=== PATIENT | male | born 1970 ===

== ENCOUNTER 2021-03-22 15:31 | Emergency (ER) | payer SELFPAY ==
--- NOTE | 2021-03-22 16:21 | Emergency Department Report ---
Blank Doc - Documentation Documentation: Patient apparently eloped prior to my evaluation.
== END 2021-03-22 16:02 | disposition left against medical advice (07) ==
LOC: ED 15:31
DX: Z00.00 Encounter for general adult medical examination without abnormal findings (principal); Z53.21 Procedure and treatment not carried out due to patient leaving prior to being seen by health care provider
CPT/HCPCS: 99283

== ENCOUNTER 2021-11-20 18:31 | Emergency (ER) | payer SELFPAY ==
[2021-11-21] MEDS ORDERED: hydrALAZINE 100 MG TAB PO ONE (00:49)
[2021-11-21 01:18] VITALS: BP 144/95
--- NOTE | 2021-11-21 01:29 | Emergency Department Report ---
ED Medical Clearance HPI - General Chief complaint: Medical Clearance Stated complaint: HBP Time Seen by Provider: 11/21/21 00:48 Source: EMS Mode of arrival: Ambulatory - History of Present Illness Initial comments: Patient 51-year-old male with history of schizophrenia and hypertension. Patient presents [facility] for medical clearance for admission screen into [facility] for substance abuse treatment. Patient has history of hypertension hypertension is generally controlled with amlodipine 10 mg p.o. daily however patient has not taken medication today. Patient denies chest pain there is no nausea vomiting no fever chills no diaphoresis no shortness of breath. Patient is ANO x3 patient walked from her room to the ED today which is greater than 1/4 mile without symptoms. Patient appears nontoxic well-hydrated well-nourished. Patient is with no acute distress at this time. MD Complaint: medical clearance request Home medications: Previous Rx's Medication Instructions Recorded Last Taken Type amLODIPine 10 mg PO DAILY #15 tab 11/21/21 Unknown Rx Allergies/Adverse reactions: Allergies Allergy/AdvReac Type Severity Reaction Status Date / Time lisinopril Allergy Unknown Verified 03/22/21 15:42 ED Review of Systems ROS: Stated complaint: HBP Other details as noted in HPI Constitutional: denies: chills, fever Eyes: denies: eye pain, eye discharge, vision change ENT: denies: ear pain, throat pain Respiratory: denies: cough, shortness of breath, wheezing Cardiovascular: denies: chest pain, palpitations Endocrine: no symptoms reported Gastrointestinal: denies: abdominal pain, nausea, vomiting, diarrhea Genitourinary: denies: urgency, dysuria Musculoskeletal: denies: back pain, joint swelling, arthralgia Skin: denies: rash, lesions Neurological: denies: headache, weakness, paresthesias, vertigo Psychiatric: denies: anxiety, depression Hematological/Lymphatic: denies: easy bleeding, easy bruising ED Past Medical Hx - Past Medical History Previous Medical History?: Yes Hx Hypertension: Yes Hx Heart Attack/AMI: Yes - Surgical History Past Surgical History?: No - Social History Substance Use Type: Marijuana - Medications Home Medications: Home Medications Medication Instructions Recorded Confirmed Last Taken Type amLODIPine 10 mg PO DAILY #15 tab 11/21/21 Unknown Rx ED Physical Exam - General Limitations: No Limitations General appearance: alert, in no apparent distress - Head Head exam: Present: normocephalic, normal inspection - Eye Eye exam: Present: normal appearance, EOMI Pupils: Present: normal accommodation - ENT ENT exam: Present: mucous membranes moist - Neck Neck exam: Present: normal inspection, full ROM. Absent: tenderness, meningismus, lymphadenopathy, thyromegaly - Respiratory Respiratory exam: Present: normal lung sounds bilaterally. Absent: respiratory distress, wheezes, chest wall tenderness - Cardiovascular Cardiovascular Exam: Present: regular rate, normal rhythm, normal heart sounds. Absent: systolic murmur, diastolic murmur, rubs, gallop - GI/Abdominal GI/Abdominal exam: Present: soft, normal bowel sounds. Absent: distended, tenderness - Rectal Rectal exam: Present: deferred - Extremities Exam Extremities exam: Present: normal inspection, full ROM, normal capillary refill. Absent: pedal edema - Back Exam Back exam: Present: normal inspection, full ROM. Absent: CVA tenderness (R), CV A tenderness (L) - Neurological Exam Neurological exam: Present: alert, oriented X3, CN II-XII intact, normal gait - Expanded Neurological Exam Expanded Patient oriented to: Present: person, place, time Speech: Present: fluid speech Motor strength exam: RUE: 5, LUE: 5, RLE: 5, LLE: 5 Best Eye Response (Enrico): (4) open spontaneously Best Motor Response (Enrico): (6) obeys commands Best Verbal Response (Enrico): (5) oriented Enrico Total: 15 - Psychiatric Psychiatric exam: Present: normal affect, normal mood - Skin Skin exam: Present: warm, dry, intact, normal color. Absent: rash ED Course Vital Signs 11/20/21 11/21/21 18:51 01:17 Temperature 98.2 F Pulse Rate 71 61 Respiratory 17 14 Rate Blood Pressure 181/121 144/95 [Left] O2 Sat by Pulse 98 100 Oximetry ED Medical Decision Making - Medical Decision Making Patient presents with asymptomatic hypertension. Patient is prescribed amlodipine 10 mg daily. Patient advised to take medications as prescribed, follow-up with primary care doctor in 1 to 2 days. Return to emergency department should he develop symptoms. Patient appears well-nourished well- hydrated and nontoxic. Patient patient denies chest pain no shortness of breath no nausea vomiting no dizziness or lightheadedness. No diaphoresis. Patient is amatory with steady gait patient will be DC to self in stable condition at this time. ED Disposition Clinical Impression: Essential hypertension Disposition: 01 HOME / SELF CARE / HOMELESS Is pt being admited?: No Does the pt Need Aspirin: No Condition: Stable Instructions: Hypertension (ED), DASH Eating Plan, Managing Your Hypertension Additional Instructions: Take medications as prescribed, follow-up with your doctor in 1 to 2 days. Return to emergency department should symptoms worsen. Prescriptions: amLODIPine 10 mg PO DAILY #15 tab Referrals: RENNY RG MD [Staff Physician] - 3-5 Days Forms: Work/School Release Form(ED) Time of Disposition: 01:31
== END 2021-11-21 01:59 | disposition home or self-care (01) ==
LOC: ED 18:31
DX: I10 Essential (primary) hypertension (principal); F12.90 Cannabis use, unspecified, uncomplicated
CPT/HCPCS: 99283

== ENCOUNTER 2022-01-19 20:34 | Emergency (ER) | payer OTHER ==
--- NOTE | 2022-01-20 09:44 | Emergency Department Report ---
HPI - General Chief Complaint: Medical Clearance - HPI HPI: Reassessment 2 The patient is a 51-year-old male present with a chief complaint of auditory hallucinations. Patient has a history of schizoaffective disorder and states he has not been on psychiatric medication for 5 years. Patient states yesterday he began having auditory hallucinations the voices telling him to kill himself. Patient denies any active attempts at harming himself but states his plan was to overdose on pills. ED Past Medical Hx - Past Medical History Hx Hypertension: Yes Hx Heart Attack/AMI: Yes Hx Congestive Heart Failure: Yes Hx Psychiatric Treatment: Yes (Schizoaffective disorder, depression, PTSD) Hx HIV: Yes - Surgical History Past Surgical History?: No - Family History Family history: no significant - Social History Smoking Status: Current Every Day Smoker (1 pack/day) Substance Use Type: Alcohol (Occasional), Cocaine, Marijuana - Medications Home Medications: Home Medications Medication Instructions Recorded Confirmed Last Taken Type amLODIPine 10 mg PO DAILY #15 tab 11/21/21 01/21/22 Unknown Rx Aspirin [[place] Aspirin EC] 81 mg PO DAILY 01/21/22 01/21/22 Unknown History Biktarvy 50-200-25 mg Tablet 1 tab PO DAILY 01/21/22 01/21/22 Unknown History Fluticasone Propionate 15.8 ml NS DAILY 01/21/22 01/21/22 Unknown History Loratadine 10 mg PO BID 01/21/22 01/21/22 Unknown History Simethicone [Gas Relief] 1 tab PO DAILY 01/21/22 01/21/22 Unknown History ED Review of Systems ROS: Stated complaint: SUICIDAL IDEATIONS Other details as noted in HPI Constitutional: no symptoms reported Eyes: denies: eye pain ENT: denies: throat pain Respiratory: no symptoms reported Cardiovascular: denies: chest pain Endocrine: no symptoms reported ( ) Gastrointestinal: denies: abdominal pain Genitourinary: denies: dysuria Musculoskeletal: denies: back pain Neurological: denies: headache Physical Exam - Physical Exam Vital Signs: Vital Signs 01/19/22 01/20/22 20:39 01:35 Temperature 98.2 F 97.5 F L Pulse Rate 72 65 Respiratory 16 18 Rate Blood Pressure 155/102 Blood Pressure 142/78 [Right] O2 Sat by Pulse 99 100 Oximetry Physical Exam: GENERAL: The patient is well-developed well-nourished male lying in chair not appearing to be in acute distress. [] HEENT: Normocephalic. Atraumatic. Extraocular motions are intact. Patient has moist mucous membranes. NECK: Supple. Trachea midline CHEST/LUNGS: Clear to auscultation. There is no respiratory distress noted. HEART/CARDIOVASCULAR: Regular. There is no tachycardia. There is no gallop rub or murmur. ABDOMEN: Abdomen is soft, nontender. Patient has normal bowel sounds. There is no abdominal distention. SKIN: There is no rash. There is no edema. There is no diaphoresis. NEURO: The patient is awake, alert, and oriented. The patient is cooperative. The patient has no focal neurologic deficits. The patient has normal speech. GCS 15 MUSCULOSKELETAL: There is no evidence of acute injury. ED Course Vital Signs 01/19/22 01/20/22 20:39 01:35 Temperature 98.2 F 97.5 F L Pulse Rate 72 65 Respiratory 16 18 Rate Blood Pressure 155/102 Blood Pressure 142/78 [Right] O2 Sat by Pulse 99 100 Oximetry ED Medical Decision Making - Lab Data Result diagrams: 01/20/22 11:25 01/20/22 09:33 - Differential Diagnosis Schizoaffective disorder Critical care attestation.: If time is entered above; I have spent that time in minutes in the direct care of this critically ill patient, excluding procedure time. ED Disposition Clinical Impression: Schizoaffective disorder Disposition: [address] [place] [address] Is pt being admited?: No Does the pt Need Aspirin: No Referrals: KEYANNA DWYER MD [Primary Care Provider] - 3-5 Days
[2022-01-20 10:32] LABS: BUN/Creatinine Ratio 19; Blood Urea Nitrogen 19 mg/dL (9-20); Calcium 9.4 mg/dL (8.4-10.2); Hemolysis Index 21
[2022-01-20 12:16] LABS: Basophils % (Auto) 0.6 % (0.0-1.8); Eosinophils # (Auto) 0.3 K/mm3 (0.0-0.4); Eosinophils % (Auto) 5.7 % (0.0-4.3); Hematocrit 38.5 % (35.5-45.6); Hemoglobin 12.9 gm/dl (11.8-15.2); Lymphocytes # (Auto) 1.2 K/mm3 (1.2-5.4); Lymphocytes % (Auto) 23.5 % (13.4-35.0); Mean Corpuscular HGB Conc 33 % (32-34); Mean Corpuscular Volume 91 fl (84-94); Monocytes # (Auto) 0.5 K/mm3 (0.0-0.8); Monocytes % (Auto) 10.6 % (0.0-7.3); Platelet Count 271 K/mm3 (140-440); Red Blood Count 4.22 M/mm3 (3.65-5.03); Red Cell Distribution Width 19.2 % (13.2-15.2)
--- NOTE | 2022-01-20 12:22 | Consultation ---
History of Present Illness - Reason for Consult Consult date: 01/20/22 Reason for consult: command hallucinations - History of Present Psychiatric Illness The patient was seen today. He presents with command auditory hallucinations. He says he hears voices telling him to do things like kill himself, and just get it over with. He also says the voices are telling him that people are trying to hurt him. The patient says he is very depressed and has a plan to overdose on his blood pressure pills. he says he has a history of PTSD, schizoaffective disorder, depression and recently bipolar. The patient says he can only recall zyprexa and wellbutrin out of his meds. The patient says he's had a suicide attempt in the past where he took a bottle of pills. He also endorses THC and cocaine use. He says he is single, unemployed and lives alone. REVIEW OF SYSTEMS Constitutional: Negative for weight loss ENT: Negative for stridor Respiratory: Negative for cough or hemoptysis All other systems reviewed and are negative MENTAL STATUS EXAMINATION General Appearance and Behavior: Age appropriate, good hygiene, cooperative, calm, polite Cooperation: cooperative Psychomotor Behavior: Psychomotor normal, Mood: Depressed Affect and affective range: congruent with stated mood Thought Process: goal directed Thought Content: SI, hopelessness Speech: normal rate and volume Suicidal Ideation: Yes, with plan to OD Homicidal Ideation: Denies Hallucinations: Command auditory Delusions: paranoid Impulse Control: Normal Insight and Judgment: Limited Memory: Limited Attention:Attentive Orientation: A/o x 3 Assessment and Plan (1) Schizoaffective Disorder (2) Cocaine Use Disorder Treatment Plan 1013 Wellbutrin 100mg po daily Olanzapine 7.5mg po daily Depakote DR 125mg po BID Trazdone 50mg po qhs Risks, benefits and alternatives of medications discussed with the patient, questions answered and consent obtained from patient. PSYCHOTHERAPY: Supportive psychotherapy provided MEDICAL: Per primary team DELIRIUM PRECAUTIONS: Please re-orient patient frequently, keep lights on during the day, and minimize benzodiazepines and opiates as these medications could wor sen patient's confusion. 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 FOLLOW-UP: Will follow. Thank you for the consult. Please contact with any questions and/or concerns Case discussed with Dr. Paul who agrees with current disposition Medications and Allergies Allergies Allergy/AdvReac Type Severity Reaction Status Date / Time lisinopril Allergy Unknown Verified 03/22/21 15:42 Home Medications Medication Instructions Recorded Confirmed Last Taken Type amLODIPine 10 mg PO DAILY #15 tab 11/21/21 Unknown Rx Mental Status Exam - Vital signs Last Vital Signs Temp 97.5 F L 01/20/22 01:35 Pulse 65 01/20/22 01:35 Resp 18 01/20/22 01:35 BP 155/102 01/20/22 01:35 Pulse Ox 100 01/20/22 01:35 Results Result Diagrams: 01/20/22 11:25 01/20/22 09:33 Abnormal lab results 01/20/22 01/20/22 01/20/22 Range/Units 09:33 09:33 11:25 RDW 19.2 H (13.2-15.2) % [place] % (Auto) 10.6 H (0.0-7.3) % Eos % (Auto) 5.7 H (0.0-4.3) % Salicylates < 0.3 L (2.8-20.0) mg/dL Acetaminophen 5.0 L (10.0-30.0) ug/mL All other labs normal.
[2022-01-20] MEDS ORDERED: DIVALPROEX DR 125 MG TAB PO SCH (13:00)
[2022-01-20] MEDS ORDERED: buPROPion 100 MG TAB PO SCH (13:00)
[2022-01-20] MEDS ORDERED: traZODone 50 MG TAB PO SCH (22:00)
[2022-01-21 01:10] LABS: Amphetamine Screen,Urine PRESUMPTIVE NEGATIVE; Benzodiazepines Screen,Urine PRESUMPTIVE NEGATIVE; Cannabinoid Screen,Urine PRESUMPTIVE POSITIVE; Cocaine Screen,Urine PRESUMPTIVE POSITIVE; Methadone Screen,Urine PRESUMPTIVE NEGATIVE; Opiate Screen,Urine PRESUMPTIVE NEGATIVE
[2022-01-21 01:22] LABS: Color,Urine Straw (Yellow)
[2022-01-21 01:25] LABS: RBC,Urine < 1.0 /HPF (0.0-6.0); WBC,Urine < 1.0 /HPF (0.0-6.0)
[2022-01-21] MEDS ORDERED: NON-FORMULARY EACH (Biktarvy 50-200-25 Mg Tablet 1 TAB) PO SCH (10:00)
--- NOTE | 2022-01-21 10:30 | Progress Note ---
Subjective - Reason for Consult Consult date: 01/21/22 Reason for consult: SI, drug use - Chief Complaint Chief complaint: The patient was seen today. He says he is not feeling well at all. The patient says he's still hearing voices telling him to get it over with and end his life. He still endorses suicidal thoughts with a plan to overdose on pills. REVIEW OF SYSTEMS Constitutional: Negative for weight loss ENT: Negative for stridor Respiratory: Negative for cough or hemoptysis All other systems reviewed and are negative MENTAL STATUS EXAMINATION General Appearance and Behavior: Age appropriate, good hygiene, cooperative, calm, polite Cooperation: cooperative Psychomotor Behavior: Psychomotor normal, Mood: Depressed Affect and affective range: congruent with stated mood Thought Process: goal directed Thought Content: SI, hopelessness Speech: normal rate and volume Suicidal Ideation: Yes, with plan to OD Homicidal Ideation: Denies Hallucinations: Command auditory Delusions: paranoid Impulse Control: Normal Insight and Judgment: Limited Memory: Limited Attention:Attentive Orientation: A/o x 3 Assessment and Plan (1) Schizoaffective Disorder (2) Cocaine Use Disorder Treatment Plan 1013 Wellbutrin 100mg po daily Increase Olanzapine 10mg po daily Increase Depakote DR 125mg po TID Trazdone 50mg po qhs Risks, benefits and alternatives of medications discussed with the patient, questions answered and consent obtained from patient. PSYCHOTHERAPY: Supportive psychotherapy provided MEDICAL: Per primary team DELIRIUM PRECAUTIONS: Please re-orient patient frequently, keep lights on during the day, and minimize benzodiazepines and opiates as these medications could worsen patient's confusion. 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 FOLLOW-UP: Will follow. Thank you for the consult. Please contact with any questions and/or concerns Case discussed with Dr. Paul who agrees with current disposition Mental Status Exam - Vital signs Last Vital Signs Temp 98.5 F 01/20/22 20:40 Pulse 60 01/20/22 20:40 Resp 16 01/20/22 20:40 BP 153/96 01/20/22 20:40 Pulse Ox 100 01/20/22 20:40
[2022-01-21] MEDS ORDERED: HALOPERIDOL LACTATE 5 MG/1 ML INJ IM PRN (12:54)
[2022-01-21] MEDS ORDERED: MIDAZOLAM 2 MG/2 ML INJ IM PRN (12:54)
--- NOTE | 2022-01-21 12:55 | Event Note ---
Date: 01/21/22 The patient was evaluated in the emergency department for symptoms described in the history of present illness. He/she was evaluated in the context of the global COVID-19 pandemic, which necessitated consideration that the patient might be at risk for infection with the virus that causes COVID-19. Institutional protocols and algorithms that pertain to the evaluation of patients at risk for COVID-19 are in a state of rapid change based on information released by regulatory bodies including the CDC and federal and state organizations. These policies and algorithms were followed during the patient's care in the emergency department. Please note that these policies, procedures and recommendations changed on a rapid basis. Laboratory studies, vital signs, nursing documentation, ER documentation, and psychiatric documentation are reviewed and appreciated. Nursing team reports no acute events this morning or concerns. The patient is awake and does not appear to be in any acute distress. The patient was deemed medically suitable for psychiatric disposition and placement during his initial ER evaluation. The patient continues to remain medically suitable for psychiatric placement and disposition. He is currently pending psychiatric placement. We will continue current home medications Vital Signs 01/19/22 01/20/22 01/20/22 20:39 01:35 20:40 Temperature 98.2 F 97.5 F L 98.5 F Pulse Rate 72 65 60 Respiratory 16 18 16 Rate Blood Pressure 155/102 Blood Pressure 142/78 153/96 [Right] O2 Sat by Pulse 99 100 100 Oximetry 01/21/22 01/21/22 10:58 12:11 Temperature 98.4 F Pulse Rate 60 Respiratory 18 Rate Blood Pressure Blood Pressure 159/101 155/99 [Right] O2 Sat by Pulse 100 Oximetry Lab Results 01/20/22 01/20/22 01/20/22 Range/Units 09:33 09:33 09:33 WBC (4.5-11.0) K/mm3 RBC (3.65-5.03) M/mm3 Hgb (11.8-15.2) gm/dl Hct (35.5-45.6) % MCV (84-94) fl MCH (28-32) pg MCHC (32-34) % RDW (13.2-15.2) % Plt Count (140-440) K/mm3 Lymph % (Auto) (13.4-35.0) % [place] % (Auto) (0.0-7.3) % Eos % (Auto) (0.0-4.3) % Baso % (Auto) (0.0-1.8) % Lymph # (Auto) (1.2-5.4) K/mm3 [place] # (Auto) (0.0-0.8) K/mm3 Eos # (Auto) (0.0-0.4) K/mm3 Baso # (Auto) (0.0-0.1) K/mm3 Seg Neutrophils % (40.0-70.0) % Seg Neutrophils # (1.8-7.7) K/mm3 Sodium 141 (137-145) mmol/L Potassium 3.9 (3.6-5.0) mmol/L Chloride 103.2 (98-107) mmol/L Carbon Dioxide 28 (22-30) mmol/L Anion Gap 14 mmol/L BUN 19 (9-20) mg/dL Creatinine 1.0 (0.8-1.3) mg/dL Estimated GFR > 60 ml/min BUN/Creatinine Ratio 19 % Glucose 94 (75-100) mg/dL Calcium 9.4 (8.4-10.2) mg/dL Urine Color (Yellow) Urine Turbidity (Clear) Specific [place] (Man) (1.003-1.030) Ur Protein (Man) (Negative) mg/dL Ur Ketones (Man) (Negative) Ur Nitrite (Man) (Negative) Urine Bilirubin (Man) (Negative) Leukocyte Esterase (Man) (Negative) Urine WBC (Auto) (0.0-6.0) /HPF Urine RBC (Auto) (0.0-6.0) /HPF Urine RBC (Manual) (Negative) Salicylates < 0.3 L (2.8-20.0) mg/dL Urine Opiates Screen Urine Methadone Screen Acetaminophen 5.0 L (10.0-30.0) ug/mL Ur Barbiturates Screen Ur Phencyclidine Scrn Ur Amphetamines Screen U Benzodiazepines Scrn Urine Cocaine Screen U Marijuana (THC) Screen Drugs of Abuse Note Plasma/Serum Alcohol (0-0.07) % SARS-CoV-2 (PCR) (Negative) 01/20/22 01/20/22 01/21/22 Range/Units 09:33 11:25 00:03 WBC 5.1 (4.5-11.0) K/mm3 RBC 4.22 (3.65-5.03) M/mm3 Hgb 12.9 (11.8-15.2) gm/dl Hct 38.5 (35.5-45.6) % MCV 91 (84-94) fl MCH 31 (28-32) pg MCHC 33 (32-34) % RDW 19.2 H (13.2-15.2) % Plt Count 271 (140-440) K/mm3 Lymph % (Auto) 23.5 (13.4-35.0) % [place] % (Auto) 10.6 H (0.0-7.3) % Eos % (Auto) 5.7 H (0.0-4.3) % Baso % (Auto) 0.6 (0.0-1.8) % Lymph # (Auto) 1.2 (1.2-5.4) K/mm3 [place] # (Auto) 0.5 (0.0-0.8) K/mm3 Eos # (Auto) 0.3 (0.0-0.4) K/mm3 Baso # (Auto) 0.0 (0.0-0.1) K/mm3 Seg Neutrophils % 59.6 (40.0-70.0) % Seg Neutrophils # 3.0 (1.8-7.7) K/mm3 Sodium (137-145) mmol/L Potassium (3.6-5.0) mmol/L Chloride (98-107) mmol/L Carbon Dioxide (22-30) mmol/L Anion Gap mmol/L BUN (9-20) mg/dL Creatinine (0.8-1.3) mg/dL Estimated GFR ml/min BUN/Creatinine Ratio % Glucose (75-100) mg/dL Calcium (8.4-10.2) mg/dL Urine Color Straw (Yellow) Urine Turbidity Clear (Clear) Specific [place] (Man) 1.010 (1.003-1.030) Ur Protein (Man) Negative (Negative) mg/dL Ur Ketones (Man) Negative (Negative) Ur Nitrite (Man) Negative (Negative) Urine Bilirubin (Man) Negative (Negative) Leukocyte Esterase (Man) Negative (Negative) Urine WBC (Auto) < 1.0 (0.0-6.0) /HPF Urine RBC (Auto) < 1.0 (0.0-6.0) /HPF Urine RBC (Manual) Negative (Negative) Salicylates (2.8-20.0) mg/dL Urine Opiates Screen Urine Methadone Screen Acetaminophen (10.0-30.0) ug/mL Ur Barbiturates Screen Ur Phencyclidine Scrn Ur Amphetamines Screen U Benzodiazepines Scrn Urine Cocaine Screen U Marijuana (THC) Screen Drugs of Abuse Note Plasma/Serum Alcohol < 0.01 (0-0.07) % SARS-CoV-2 (PCR) (Negative) 01/21/22 01/21/22 Range/Units 00:03 08:30 WBC (4.5-11.0) K/mm3 RBC (3.65-5.03) M/mm3 Hgb (11.8-15.2) gm/dl Hct (35.5-45.6) % MCV (84-94) fl MCH (28-32) pg MCHC (32-34) % RDW (13.2-15.2) % Plt Count (140-440) K/mm3 Lymph % (Auto) (13.4-35.0) % [place] % (Auto) (0.0-7.3) % Eos % (Auto) (0.0-4.3) % Baso % (Auto) (0.0-1.8) % Lymph # (Auto) (1.2-5.4) K/mm3 [place] # (Auto) (0.0-0.8) K/mm3 Eos # (Auto) (0.0-0.4) K/mm3 Baso # (Auto) (0.0-0.1) K/mm3 Seg Neutrophils % (40.0-70.0) % Seg Neutrophils # (1.8-7.7) K/mm3 Sodium (137-145) mmol/L Potassium (3.6-5.0) mmol/L Chloride (98-107) mmol/L Carbon Dioxide (22-30) mmol/L Anion Gap mmol/L BUN (9-20) mg/dL Creatinine (0.8-1.3) mg/dL Estimated GFR ml/min BUN/Creatinine Ratio % Glucose (75-100) mg/dL Calcium (8.4-10.2) mg/dL Urine Color (Yellow) Urine Turbidity (Clear) Specific [place] (Man) (1.003-1.030) Ur Protein (Man) (Negative) mg/dL Ur Ketones (Man) (Negative) Ur Nitrite (Man) (Negative) Urine Bilirubin (Man) (Negative) Leukocyte Esterase (Man) (Negative) Urine WBC (Auto) (0.0-6.0) /HPF Urine RBC (Auto) (0.0-6.0) /HPF Urine RBC (Manual) (Negative) Salicylates (2.8-20.0) mg/dL Urine Opiates Screen Presumptive negative Urine Methadone Screen Presumptive negative Acetaminophen (10.0-30.0) ug/mL Ur Barbiturates Screen Presumptive negative Ur Phencyclidine Scrn Presumptive negative Ur Amphetamines Screen Presumptive negative U Benzodiazepines Scrn Presumptive negative Urine Cocaine Screen Presumptive positive U Marijuana (THC) Screen Presumptive positive Drugs of Abuse Note Disclamer Plasma/Serum Alcohol (0-0.07) % SARS-CoV-2 (PCR) Negative (Negative)
[2022-01-21] MEDS ORDERED: CETIRIZINE 10 MG TAB PO SCH (14:00)
[2022-01-21] MEDS ORDERED: DIVALPROEX DR 125 MG TAB PO SCH (14:00)
[2022-01-21] MEDS ORDERED: amLODIPine 10 MG TAB PO SCH (14:00)
[2022-01-21] MEDS ORDERED: IBUPROFEN 800 MG TAB PO ONE (21:02)
[2022-01-21] MEDS ORDERED: NON-FORMULARY EACH (Loratadine [Loratadine] 10 MG Tablet) PO SCH (22:00)
[2022-01-22] MEDS ORDERED: ASPIRIN EC 81 MG TAB PO SCH (10:00)
--- NOTE | 2022-01-22 11:13 | Progress Note ---
Subjective - Reason for Consult Consult date: 01/22/22 Reason for consult: Si, drug use - Chief Complaint Chief complaint: The patient was seen today. He says he feels a little better. The patient still endorses suicidal thoughts. He says "If I can't get to [facility] and get help, I don't know what I'm going to do." The patient says "I can't continue to live like this." He says "If I go home I'm going to take some pills or do whatever to not deal with this any more." He denies hallucinations. He endorses being very depressed. REVIEW OF SYSTEMS Constitutional: Negative for weight loss ENT: Negative for stridor Respiratory: Negative for cough or hemoptysis All other systems reviewed and are negative MENTAL STATUS EXAMINATION General Appearance and Behavior: Age appropriate, good hygiene, cooperative, calm, polite Cooperation: cooperative Psychomotor Behavior: Psychomotor normal, Mood: Depressed Affect and affective range: congruent with stated mood Thought Process: goal directed Thought Content: SI, hopelessness Speech: normal rate and volume Suicidal Ideation: Yes, with plan to OD Homicidal Ideation: Denies Hallucinations: Command auditory Delusions: paranoid Impulse Control: Normal Insight and Judgment: Limited Memory: Limited Attention:Attentive Orientation: A/o x 3 Assessment and Plan (1) Schizoaffective Disorder (2) Cocaine Use Disorder Treatment Plan 1013 Increase Wellbutrin 200mg po daily Olanzapine 10mg po daily Increase Depakote DR 250mg po BID Trazdone 50mg po qhs Risks, benefits and alternatives of medications discussed with the patient, questions answered and consent obtained from patient. PSYCHOTHERAPY: Supportive psychotherapy provided MEDICAL: Per primary team DELIRIUM PRECAUTIONS: Please re-orient patient frequently, keep lights on during the day, and minimize benzodiazepines and opiates as these medications could worsen patient's confusion. 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 FOLLOW-UP: Will follow. Thank you for the consult. Please contact with any questions and/or concerns Case discussed with Dr. Paul who agrees with current disposition Mental Status Exam - Vital signs Last Vital Signs Temp 97.5 F L 01/22/22 08:39 Pulse 59 L 01/22/22 08:39 Resp 18 01/22/22 08:39 BP 151/93 01/22/22 08:39 Pulse Ox 100 01/22/22 08:40
[2022-01-22] MEDS: amLODIPine 10 MG TAB PO SCH (12:41)
[2022-01-22] MEDS: buPROPion 100 MG TAB PO SCH (12:41)
[2022-01-22] MEDS: DIVALPROEX DR 250 MG TAB PO SCH (12:41)
[2022-01-22] MEDS ORDERED: traZODone 50 MG TAB PO SCH (22:00)
[2022-01-23] MEDS ORDERED: cloNIDine 0.2 MG TAB PO ONE ×2 (06:25→07:30)
[2022-01-23 07:22] VITALS: BP 171/107
[2022-01-23] MEDS ORDERED: cloNIDine 0.2 MG TAB PO SCH (07:30)
--- NOTE | 2022-01-23 11:14 | Progress Note ---
Subjective - Reason for Consult Consult date: 01/23/22 - Chief Complaint Chief complaint: The patient was seen today. REVIEW OF SYSTEMS Constitutional: Negative for weight loss ENT: Negative for stridor Respiratory: Negative for cough or hemoptysis All other systems reviewed and are negative MENTAL STATUS EXAMINATION General Appearance and Behavior: Age appropriate, good hygiene, cooperative, calm, polite Cooperation: cooperative Psychomotor Behavior: Psychomotor normal, Mood: Depressed Affect and affective range: congruent with stated mood Thought Process: goal directed Thought Content: SI, hopelessness Speech: normal rate and volume Suicidal Ideation: Yes, with plan to OD Homicidal Ideation: Denies Hallucinations: Command auditory Delusions: paranoid Impulse Control: Normal Insight and Judgment: Limited Memory: Limited Attention:Attentive Orientation: A/o x 3 Assessment and Plan (1) Schizoaffective Disorder (2) Cocaine Use Disorder Treatment Plan 1013 Increase Wellbutrin 200mg po daily Olanzapine 10mg po daily Increase Depakote DR 250mg po BID Trazdone 50mg po qhs Risks, benefits and alternatives of medications discussed with the patient, questions answered and consent obtained from patient. PSYCHOTHERAPY: Supportive psychotherapy provided MEDICAL: Per primary team DELIRIUM PRECAUTIONS: Please re-orient patient frequently, keep lights on during the day, and minimize benzodiazepines and opiates as these medications could worsen patient's confusion. 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 FOLLOW-UP: Will follow. Thank you for the consult. Please contact with any questions and/or concerns Case discussed with Dr. Paul who agrees with current disposition Mental Status Exam - Vital signs Last Vital Signs Temp 97.5 F L 01/22/22 08:39 Pulse 56 L 01/23/22 07:21 Resp 16 01/22/22 14:22 BP 171/107 01/23/22 07:21 Pulse Ox 100 01/22/22 14:22
[2022-01-23] MEDS: DIVALPROEX DR 250 MG TAB PO SCH (11:27)
[2022-01-23] MEDS: buPROPion 100 MG TAB PO SCH (11:28)
[2022-01-23] MEDS: amLODIPine 10 MG TAB PO SCH (11:28)
--- NOTE | 2022-01-23 14:07 | Event Note ---
Date: 01/23/22 Pt seen this morning and also by the psychiatry team and continue to recommend inpatient treatment. Nursing team did not have any issue to report at this time. No other modifying or associated factors reported.
== END 2022-01-23 21:29 ==
LOC: EEVIPCON 20:34 → ED 20:34
DX: F25.9 Schizoaffective disorder, unspecified (principal); F17.210 Nicotine dependence, cigarettes, uncomplicated; Z20.822 Contact with and (suspected) exposure to COVID-19; F14.90 Cocaine use, unspecified, uncomplicated; F12.90 Cannabis use, unspecified, uncomplicated; I11.0 Hypertensive heart disease with heart failure; I50.9 Heart failure, unspecified; Z88.8 Allergy status to other drugs, medicaments and biological substances; Z79.899 Other long term (current) drug therapy; Z72.89 Other problems related to lifestyle
CPT/HCPCS: 36415; 80048; 80307; 81001; 85025; 99285; U0003; 80320; G0480